=== PATIENT | female | born 1945 | race Caucasian/White ===

== ENCOUNTER 2019-02-09 10:46 | Inpatient (IN) | payer OTHER, MEDICAID ==
[~2019-02-09] VITALS: Ht 162.6 cm; Wt 61.0 kg
[2019-02-09 10:49] VITALS: Ht 162.6 cm; Wt 61.0 kg
[2019-02-09 12:46] LABS: PLATELET COUNT 205 x10^3mcL (130-400); RED CELL DISTRIBUTION WIDTH 14.1 % (11.5-14.5)
[2019-02-09 13:06] LABS: CALCIUM 8.7 mg/dL (8.5-10.1); CARBON DIOXIDE 25.8 mmol/L (21-32); CHLORIDE SERUM 101 mmol/L (98-107); CREATININE SERUM 0.9 mg/dL (0.6-1.0); GLUCOSE SERUM 105 mg/dL (74-106); POTASSIUM SERUM 3.5 mmol/L (3.5-5.1); SODIUM SERUM 137 mmol/L (136-145)
[2019-02-09 13:12] LABS: BAND NEUTROPHIL 5 % (0-10); BASOPHIL 0 % (0-2); MONOCYTE 2 % (0-7); SEGMENTED NEUTROPHILS 88 % (37-75)
[2019-02-09 13:13] LABS: PLATELET MORPHOLOGY PLATELETS NORMAL
[2019-02-09 13:19] LABS: ALBUMIN 3.4 g/dL (3.4-5.0); ALKALINE PHOSPHATASE 171 U/L (46-116); ALT/SGPT 248 U/L (14-59); AST/SGOT 238 U/L (15-37); BILIRUBIN TOTAL 1.5 mg/dL (0.20-1.00); CHOLESTEROL 135 mg/dL (<200); HDL CHOLESTEROL 54 mg/dL (40-60); T4(THYROXINE) 8.1 ug/dL (4.7-13.3); TOTAL PROTEIN, SERUM 7.3 g/dL (6.4-8.2)
[2019-02-09 13:26] LABS: microscopic required? YES; urine erythrocyte 1+ (NEGATIVE)
--- NOTE | 2019-02-09 13:29 | NUR ---
PT MEDICATED PER ORDER, PT VERBALIZED UNDERSTANDING OF MEDICATION PRIOR TO ADMINISTRATION. PT IS AWAKE AND ALERT, LAYING COMFORTABLY IN GURNEY, FAMILY AT BEDSIDE. NAD NOTED.
[2019-02-09 13:38] LABS: AMPHETAMINE QUAL UR NONE DETECTED (See below)
[2019-02-09 14:03] LABS: LIPASE 15580 IU/L (73-393)
--- NOTE | 2019-02-09 14:25 | NUR ---
PT. LAYING ON GURNEY IN POSITION OF COMFORT. BREATHING E/U. NOT IN ANY APPARENT DISTRESS. FAMILY AT BEDSIDE. CALL LIGHT IN REACH
--- NOTE | 2019-02-09 14:48 | NUR ---
DR. JONES MADE AWARE OF LIPASE.
[2019-02-09] MEDS ORDERED: LOSARTAN POTASS50 M1 (14:54)
--- NOTE | 2019-02-09 15:35 | NUR ---
PT. LAYING ON GURNEY IN POSITION OF COMFORT. BREATHING E/U. NOT IN ANY APPARENT DISTRESS AT THIS TIME. CALL LIGHT IN REACH. WILL CONTINUE TO MONITOR
--- NOTE | 2019-02-09 16:06 | NUR ---
REPORT CALLED TO MAURIZIO VALENCIA FOR FURTHTER CARE OF PATIENT. ALL QUESTIONS AND CONCERNS ADDRESSED.
--- NOTE | 2019-02-09 16:11 | NUR ---
PT. TRANSPORTED TO [facility] FOR FURTHER CARE. PT. AAOX4, TALKING AND RESPONDING APPROPRIATELY, BREATHING E/U. NAD. TRASPORTED BY KELLEY VALENCIA AND TOMI MATA. PT. STABLE AT TIME OF TRANSFER.
[2019-02-09 16:35] VITALS: BP 119/53
--- NOTE | 2019-02-09 16:43 | NUR ---
RECEIVED PT FROM ER, PT ADMIT FOR ACUTE PANCREATITIS, PT IS A/O X4, VERBAL RESPONSIVE, LUNG SOUND CLEAR BILATERAL, NO COUGH, NO SOB, PT IS ON TELE 19, NSR, DENY ANY CHEST PAIN OR DISCOMFORT, BOWEL SOUND PRESENT ALL 4 QUADRANTS, NO DISTENTION, C/O ABD PAIN AT UPPER QUADRANT PIOR TO ER. BUT DENY ANY PAIN AT THIS MOMENT, PEDAL PULSE PRESENT BOTH FEET, NO EDEMA, IV AT LEFT AC, NO LEAKING, NO INFILTRATION. ALL ADLS ASSIST, ALL NEED MET, CALL LIGHT IN REACH, WILL CONTINUE TO MONITOR.
--- NOTE | 2019-02-09 17:15 | NUR ---
NEW ORDER RECEIVED FROM DR STONE. ALSO MADE HIM AWARE OF UA RESULTS AND DIET ORDER. ANTICIPATING OTHER NEW ORDERS TO BE PLACED PER DR STONE.
--- NOTE | 2019-02-09 18:35 | NUR ---
PATIENT REPORTS MORPHINE EFFECTIVE FOR HEADACHE 01/13, DECREASED TO 3. PERIPHERAL PUSLES PALPABLE, NO EDEMA. LUNGS CTA, NO RESP DISTRESS NOTED ON RA, BREATHING E/U. DENIES COUGH. BOWEL SOUNDS ACTIVE, STATES ABD TENDER TO PALPATION. NO BM TODAY. DENIES N/V AT THIS TIME. SKIN INTACT. IV ACCESS TO LAC SITE WNL. CALL LIGHT WITHIN REACH, DAUGHTER AT BEDSIDE. WILL CONT TO MONITOR AND ENDORSE TO NOC NURSE.
--- NOTE | 2019-02-09 19:31 | NUR ---
RECIEVED PATIENT AT START OF SHIFT A/O X4. ON TELE 10 NSR. NO SOB ON RA. LUNGS CLEAR. DENIES PAIN AT THIS TIME. IV TO LAC IS INFUSING WITHOUT ERYTHEMA OR INFILTRATION. BED LOCKED AND IN LOWEST POSITION. PATIENT EDUCATED OF USE OF CALL LIGHT, IT IS WITHIN REACH.
[2019-02-09 20:56] VITALS: BP 107/48
--- NOTE | 2019-02-09 23:59 | NUR ---
PATIENT GIVEN MORPHINE PER EMAR FOR 8/10 SHOULDER PAIN.
--- NOTE | 2019-02-10 00:27 | NUR ---
PATIENTS EYES ARE CLOSED, BREATHS EVEN AND REGULAR. NO DISTRESS NOTED. IV INFUSING WITHOUT COMPLICATION. CALL LIGHT WITHIN REACH.
--- NOTE | 2019-02-10 04:54 | NUR ---
PATIENT GIVEN MORPHINE PER EMAR FOR COMPLAINT OF 8/10 PAIN TO HER LEFT SHOULDER.
[2019-02-10 05:25] VITALS: BP 120/60
--- NOTE | 2019-02-10 06:01 | NUR ---
PATIENT IS AWAKE. REPORTS SHE STILL HAS SOME PAIN TO HER LEFT SHOULDER WHERE SHE GOT HER PNEUMONIA VACCINE. WARM COMPRESS APPLIED. IV TO LAC IS INFUSING WITHOUT ERYTHEMA OR INFILTRATION. NO SOB ON RA. PATIENT HAS REMAINED NPO THROUGH OUT SHIFT. BED LOCKED AND IN LOWEST POSIITON. CALL LIGHT AND BEDSIDE TABLE WITHIN REACH.
[2019-02-10 06:41] LABS: PLATELET COUNT 189 x10^3mcL (130-400); RED CELL DISTRIBUTION WIDTH 14.4 % (11.5-14.5)
[2019-02-10 06:45] LABS: ALKALINE PHOSPHATASE 179 U/L (46-116); ALT/SGPT 185 U/L (14-59); AST/SGOT 132 U/L (15-37); BILIRUBIN TOTAL 2.7 mg/dL (0.20-1.00); CALCIUM 8.3 mg/dL (8.5-10.1); CARBON DIOXIDE 28.3 mmol/L (21-32); CHLORIDE SERUM 104 mmol/L (98-107); CREATININE SERUM 0.8 mg/dL (0.6-1.0); GLUCOSE SERUM 139 mg/dL (74-106); POTASSIUM SERUM 3.3 mmol/L (3.5-5.1); SODIUM SERUM 139 mmol/L (136-145); TOTAL PROTEIN, SERUM 6.8 g/dL (6.4-8.2)
[2019-02-10 06:55] LABS: ALBUMIN 2.9 g/dL (3.4-5.0)
[2019-02-10 07:09] LABS: BASOPHIL % 0 % (0-2)
--- NOTE | 2019-02-10 07:25 | NUR ---
RECEIVED PT FROM [facility]. PT AWAKE, ALERT A/OX4. PT ON ROOM AIR WITH NO RESP DISTRESS NOTED. PT ON TELE 10. PT DENIES CHEST PAIN AT THIS TIME. IV ACCESS LAC CDI INFUSING D5NS AT 100ML/HR. PERIPHERAL PULSES PALPABLE, NO EDEMA NOTED. ACTIVE BS NOTED. PT DENIES ISSUES WITH ELIMINATION. PT REPORTS SOME ABDOMINAL PAIN BUT TOLERABLE AT THIS TIME. PT AMBULATORY SAFETY MEASURES IN PLACE, BED LOW AND LOCKED. CALL LIGHT WITHIN REACH.
[2019-02-10 07:54] LABS: LIPASE 5480 IU/L (73-393)
[2019-02-10 08:19] VITALS: BP 113/49
--- NOTE | 2019-02-10 10:07 | NUR ---
PT TAKEN DOWNSTAIRS FOR U/S BY WHEELCHAIR.
--- NOTE | 2019-02-10 10:32 | NUR ---
PT POTASSIUM 3.3, POTASSIUM 40MEQ ADMINISTERED ORDERED ONE TIME, PO. PT TOLERATED WELL.
[2019-02-10 12:10] VITALS: BP 119/53
--- NOTE | 2019-02-10 14:13 | NUR ---
CONSENT FOR PROCEDURE FOR TOMORROW OBTAINED WITH TEST RIDER PHONE, ID [phone]. FAMILY AT BEDSIDE.
--- NOTE | 2019-02-10 16:00 | NUR ---
ALL NEEDS MET AT THIS TIME. NO ACUTE DISTRESS OR DISCOMFORT NOTED.
[2019-02-10 17:08] VITALS: BP 122/61
--- NOTE | 2019-02-10 18:43 | NUR ---
PT RESTING WITH NO ACUTE DISTRESS NOTED AT THIS TIME. PT COMPLAINING OF DISCOMFORT TO LEFT ARM WHERE PNA VACCINE ADMINISTERED. WARM COMPRESS APPLIED AT THIS TIME. FAMILY AT BEDSIDE. ALL NEEDS TENDED TO THROUGHOUT SHIFT. WILL CONTINUE TO MONITOR AND ENDORSE CARE TO GRANULATOR TENDER. SAFETY MEASURES MAINTAINED.
--- NOTE | 2019-02-10 20:00 | NUR ---
RECEIVED PT IN BED, ALERT AND ORIENTED. YI SPEAKING, ABLE TO VERBALIZE NEEDS. DENIES HEADACHE/DIZZINESS. RESP. EVEN AND UNLABORED. ON ROOM AIR, NO ACUTE DISTRESS NOTED. AFEBRILE AND VITAL SIGNS STABLE. SR ON THE MONITOR, DENIES CHEST PAIN OR ANY DISCOMFORT AT THIS TIME. IVF, D5NS AT 100ML/HR, INTACT AND INFUSING VIA LAC, NPO EXCEPT MEDS. ABD. SOFT, NON TENDER. BS ACTIVE, NO N/V NOTED. VOIDING FREELY. CALL LIGHT WITHIN REACH. WILL CONTINUE TO MONITOR.
[2019-02-10 20:51] VITALS: BP 125/56
--- NOTE | 2019-02-11 01:22 | NUR ---
RESTING QUIETLY IN BED, WITH EYES CLOSED, APPEARS ASLEEP, EASILY AROUSABLE. RESP. EVEN AND UNLABORED. ON ROOM AIR, NO ACUTE DISTRESS NOTED. IVF INTACT AND INFUSING WELL, SITE CLEAR. KEPT COMFORTABLE. CALL LIGHT WITHIN REACH. WILL CONTINUE TO MONITOR.
[2019-02-11 05:15] VITALS: BP 122/58
--- NOTE | 2019-02-11 06:13 | NUR ---
SLEPT WELL. NO COMPLAINTS NOTED. AFEBRILE AND VITAL SIGNS STABLE.RESP. EVEN AND UNLABORED. ON ROOM AIR. NO ACUTE DISTRESS NOTED. NPO EXCEPT MEDS MAINTAINED. NO COMPLAINTS OF PAIN OR ANY DISCOMFORT NOTED. IVF INTACT AND INFUSING WELL, SITE CLEAR. KEPT COMFORTABLE. WILL CONTINUE TO MONITOR.
[2019-02-11 06:32] LABS: ALKALINE PHOSPHATASE 179 U/L (46-116); ALT/SGPT 125 U/L (14-59); AST/SGOT 61 U/L (15-37); BILIRUBIN TOTAL 1.39 mg/dL (0.20-1.00); CALCIUM 8.3 mg/dL (8.5-10.1); CARBON DIOXIDE 27.6 mmol/L (21-32); CHLORIDE SERUM 106 mmol/L (98-107); CREATININE SERUM 0.7 mg/dL (0.6-1.0); GLUCOSE SERUM 118 mg/dL (74-106); POTASSIUM SERUM 3.8 mmol/L (3.5-5.1); SODIUM SERUM 140 mmol/L (136-145); TOTAL PROTEIN, SERUM 6.5 g/dL (6.4-8.2)
[2019-02-11 06:38] LABS: BASOPHIL % 0.1 % (0-2); PLATELET COUNT 177 x10^3mcL (130-400); RED CELL DISTRIBUTION WIDTH 14.4 % (11.5-14.5)
[2019-02-11 06:45] LABS: ALBUMIN 2.6 g/dL (3.4-5.0)
--- NOTE | 2019-02-11 07:15 | NUR ---
SEEN IN BED RESTING WITH EYES CLOSED. NO RESP DISTRESS NOTED ON ROOM AIR. STATED PAIN TO UPPER QUARDRANT 4/10 ON PAIN SCALE, REFUSED PAIN MEDS OFFERED. KEPT NPO FOR ERCP. BRP. IVF D5NS AT 100ML/HR TO LAC INFUSING WELL. PLAN OF CARE INFORMED, CALL LIGHT PLACED WITHIN EASY REACH. SIDERAILS UP X2.
[2019-02-11 08:11] VITALS: BP 123/60
--- NOTE | 2019-02-11 09:40 | NUR ---
NOTED PREVIOUS CONSENT FOR ERCP WAS INCORRECT ON ATTENDING PHYSICIAN NAME. CONSENT FOR ENDOSCOPIC RETROGRADE CHOLANGIOPANCREATOGRAPHY SIGNED BY PATIENT WHO IS AWAKE,ALERT, ORIENTED X4. PLANER FEEDER PHONE ID# [phone].
--- NOTE | 2019-02-11 09:46 | NUR ---
SEEN BY DOCTOR BERTHA, NOTED NEW ORDER FOR AM LAB.
[2019-02-11 13:10] VITALS: BP 109/58
--- NOTE | 2019-02-11 13:30 | NUR ---
OFF FLOOR VIA BED FOR ERCP.
[2019-02-11 16:05] VITALS: BP 129/61
--- NOTE | 2019-02-11 16:05 | NUR ---
RECEIVED BACK FROM ERCP VIA [facility], ACCOMPANIED BY OR NURSES AND PATIENT'S FAMILY MEMBERS. NO RESP DISTRESS NOTED, BREATHING E/U, O2SAT 96% ABDN SOFT AND DISTENDED STATED HAVING PAIN LIKE BLOATING PAIN. STATED MILD NAUSEA. S/L TO LFA INTACT AND PATENT. TELEMETRY RECONNECTED, NSR HR=64. KEPT NPO. IVF D5NS AT 100ML/HR RECONNECTED AND INFUSING WELL. CALL LIGHT PLACED WITHIN EASY REACH. SIDERAILS UP X2.
--- NOTE | 2019-02-11 16:20 | NUR ---
ASSISTED TO BATHROOM, STEADY GAIT, VOIDED, DENIES BURNING ON URINATION, PASSING GAS. ASSISTED BACK TO BED. REFUSED PAIN MEDS OFFERED. WILL CONTINUE TO MONITOR.
--- NOTE | 2019-02-11 17:20 | NUR ---
SEEN TALKING ON THE PHONE, FAMILY MEMBERS AT BEDSIDE. STATED ABDOMINAL PAIN IS RELIEF. KEPT NPO FOR 12 HOURS POST ERCP. PATIENT AND FAMILY MADE AWARE.
[2019-02-11 19:38] VITALS: BP 115/59
--- NOTE | 2019-02-11 20:05 | NUR ---
RECEIVED PT IN BED, WITH FAMILY AT THE BEDSIDE, VISITING. ALERT AND ORIENTED , [place]EN[place] SPEAKING. RESP. EVEN AND UNLABORED. ON ROOM AIR, NO ACUTE DISTRESS NOTED. SR ON THE MONITOR, DENIES CHEST PAIN OR ANY DISCOMFORT AT THIS TIME. PASSING GAS, NO BM AT THIS TIME. NPO EXCEPT MEDS . NO N/V NOTED. IVF, LR AT 125ML/HR, INTACT AND INFUSING VIA LH , SITE CLEAR. ASSISTED WITH HS CARE. CALL LIGHT WITHIN REACH. WILL CONTINUE TO MONITOR.
--- NOTE | 2019-02-12 00:16 | NUR ---
NO COMPLAINTS NOTED AT THIS TIME. EYES CLOSED, APPEARS ASLEEP, EASILY AROUSABLE. RESP. EVEN AND UNLABORED. NO ACUTE DISTRESS NOTED.CALL LIGHT WITHIN REACH. WILL CONTINUE TO MONITOR.
--- NOTE | 2019-02-12 02:43 | NUR ---
AWAKE, ASSISTED TO THE BATHROOM, VOIDED. ASSISTED BACK TO BED. NO COMPLAINT NOTED AT THIS TIME. CALL LIGHT WITHIN REACH.WILL CONTINUE TO MONITOR.
[2019-02-12 04:09] VITALS: BP 101/50
--- NOTE | 2019-02-12 06:09 | NUR ---
SLEPT WELL . NO SIGNIFICANT CHANGE NOTED IN PT,S CONDITION. RESP. EVEN AND UNLABORED. NO ACUTE DISTRESS NOTED. AFEBRILE AND VITAL SIGNS STABLE. DENIES CP OR ANY DISCOMFORT. IVF INATCT AND INFUSING WELL, SITE CLEAR. KEPT COMFORTABLE. WILL CONTINUE TO MONITOR.
[2019-02-12 06:51] LABS: BASOPHIL % 0.4 % (0-2); PLATELET COUNT 182 x10^3mcL (130-400); RED CELL DISTRIBUTION WIDTH 14.3 % (11.5-14.5)
[2019-02-12 07:11] LABS: ALKALINE PHOSPHATASE 156 U/L (46-116); ALT/SGPT 73 U/L (14-59); AST/SGOT 32 U/L (15-37); BILIRUBIN TOTAL 0.75 mg/dL (0.20-1.00); CALCIUM 8.1 mg/dL (8.5-10.1); CARBON DIOXIDE 23.1 mmol/L (21-32); CHLORIDE SERUM 111 mmol/L (98-107); CREATININE SERUM 0.7 mg/dL (0.6-1.0); GLUCOSE SERUM 75 mg/dL (74-106); LIPASE 476 IU/L (73-393); POTASSIUM SERUM 3.7 mmol/L (3.5-5.1); SODIUM SERUM 144 mmol/L (136-145)
--- NOTE | 2019-02-12 07:15 | NUR ---
SEEN WALKING BACK FROM THE BATHROOM WITH STEADY GAIT. DENIES ABDOMINAL PAIN. STATED JUST HAD LOOSE BM. IVF LR TO LFA INFUSING WELL AT 125ML/HR. ON CLEAR LIQUID DIET FOR BREAKFAST. CALL LIGHT PLACED WITHIN EASY REACH. SIDERAILS UP X2.
[2019-02-12 07:16] LABS: ALBUMIN 2.3 g/dL (3.4-5.0); TOTAL PROTEIN, SERUM 6.1 g/dL (6.4-8.2)
[2019-02-12 08:16] VITALS: BP 126/64
--- NOTE | 2019-02-12 09:42 | NUR ---
TOLERATED TO CLEAR LIQUID DIET BREAKFAST WELL. DENIES PAIN OR NAUSEA. ADVANCED TO CARDIAC DIET LUNCH PER DOCTOR
[2019-02-12 12:13] VITALS: BP 110/56
--- NOTE | 2019-02-12 15:05 | NUR ---
DISCHARGE INSTRUCTION/PRESCRIPTION FOR [facility] GIVEN TO PATIENT AND PATIENT'S SON IN LAW, VERBALIZED UNDERSTANDING. S/L TO LFA REMOVED WITH CATHTER INTACT, NO ERYTHEMA OR INFILTRATION TO SITE, DRSG APPLIED. TELEMETRY REMOVED AND RETURNED TO [place]. DENIES PAIN OR DISCOMFORT. TOLERATED TO CARDIAC DIET LUNCH WELL. AMBULATORY. BROUGHT VIA WHEELCHAIR ACCOMPANIED BY TINO LANDA TO [facility]. CONDITION STABLE UPON DISCHARGE.
== END 2019-02-12 15:07 | disposition home or self-care (01) | DRG 393 ==
LOC: ED 10:46 → DU 15:43
PROVIDERS: Emergency Medicine; Internal Medicine; ADMIT Internal Medicine
PROC: 0FC98ZZ Extirpation of Matter from Common Bile Duct, Via Natural or Artificial Opening Endoscopic (ICD-10-PCS; principal; 2019-02-11 14:00)
DX: K91.86 Retained cholelithiasis following cholecystectomy (principal); K85.10 Biliary acute pancreatitis without necrosis or infection; K80.30 Calculus of bile duct with cholangitis, unspecified, without obstruction; N39.0 Urinary tract infection, site not specified; K29.70 Gastritis, unspecified, without bleeding; K57.10 Diverticulosis of small intestine without perforation or abscess without bleeding; I10 Essential (primary) hypertension; R74.0 Nonspecific elevation of levels of transaminase and lactic acid dehydrogenase [LDH]; G89.29 Other chronic pain; M54.5 Low back pain; Z68.22 Body mass index [BMI] 22.0-22.9, adult
CPT/HCPCS: 43262; 83880; 90732; C1769; G0378; J0500; J1610; J1956; J2250; J2270; J2704; J3010; J3490; J7030; J7042; J7120; Q9967